=== PATIENT | male | born 1970 | race Caucasian/White ===

== ENCOUNTER 2019-09-23 16:47 | Emergency (ER) | payer MEDICAID, SELFPAY ==
[2019-09-23 16:48] VITALS: BP 172/97; PULSE 74; RESP 16; TEMP 36.4; O2SAT 99; BMI 29.3
[2019-09-23 16:52] VITALS: O2SAT 99
--- NOTE | 2019-09-23 17:22 | ED.DCSUM_ITS ---
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 Patient had a dry hacking cough since yesterday. He also states he has had fatigue and today he had episode of nausea and sweating. He denies any chest pain except when he coughs a lot and he gets a little bit of discomfort in his chest. He currently does not have any. He does have a mild sore throat secondary to coughing. The cough is been nonproductive. Patient's is an [employer] and was very concerned that he could have coronavirus and insisted he come to the emergency room. Patient was feeling dizzy a little bit earlier which is why he was instructed to call 911 instead of driving himself. Patient does not have a PCP. Patient currently denies any complaints. He states he does not think he should be in the ER and is only here to satisfy his . Patient states he has not slept much because he was driving overnight and was up all day at home. He states he is very tired. Past Medical History - Allergies and Home Meds Allergies/Adverse Reactions: Allergies morphine Adverse Reaction (Mild, Verified 01/17/16 18:52) Other STATES NOT REALLY A REACTION- STATES HE JUST DOESN'T LIKE TO TAKE MEDICATION AND HAVE MEDICATION EFFECTS I FELT IT GO IN, AND I ABOUT CAME OUT OF THE BED, I LIKE TO BE IN CONTROL OF THINGS, IT DIDN'T MAKE ME FEEL BAD, I JUST LIKE TO BED IN CONTROL. codeine Adverse Reaction (Verified 09/16/13 16:58) Abd cramps/diarrhea Primary Care Physician: Nicol Matthew MD [STAFF PHYSICIAN] - Surgical History: noncontributory Smoking Status: Current every day smoker - Family History Paternal Family History: Reports: Heart Disease Review of Systems General: Reports: Chills, Malaise, Sweats. Denies: Fever Eyes: Denies: Visual changes - bilaterally, Diplopia ENT: Reports: Sore throat. Denies: Bilateral ear pain, Rhinorrhea Cardiovascular: Denies: Chest pain, Palpitations Respiratory: Reports: Cough. Denies: Dyspnea, Sputum, Dyspnea on exertion Gastrointestinal: Reports: Nausea. Denies: Abdominal pain, Vomiting, Diarrhea, Melena, Hematochezia Genitourinary: Denies: Dysuria, Hematuria, Frequency Skin: Denies: Rash Neurological: Denies: Headache, Weakness, Numbness Physical Exam Vital Signs/Narrative: Vital Signs Temp Pulse Resp BP Pulse Ox 09/23/19 16:48 97.6 F L 74 16 172/97 H 99 Inital Vital Signs reviewed: Yes General: Well nourished, Well developed Head: Normocephalic, Atraumatic Eyes: Perrl, EOMI Neck: Supple, Nontender Cardiovascular: Regular rate, Regular rhythm, No murmurs Respiratory: No distress, CTA bilaterally, No Stridor, Chest nontender Abdomen: Soft, Nontender, Nondistended, Normal bowel sounds Back: Nontender, Normal Inspection Extremities: Nontender, No edema Skin: Normal color, No rash Neurological: Alert, Oriented x3, Cranial nerves II-XII grossly intact, Normal Strength, Normal Sensation Psychological: Normal affect Diagnostic/Tx/Re-eval Chest X-Ray - ED: 1 View, Read by ED Physician, Read by Radiologist, No Acute Disease - Medical Decision Making Patient evaluated for cough and fatigue. He is nontoxic in no acute distress. Is not hypoxic. Does not have associated chest pain. I do not suspect ACS or PE as a cause of his symptoms. His lung sounds are clear. He is not wheezing. Chest x-ray does not show any acute infiltrate. Is possible patient does have novel coronavirus 19. Patient is counseled that I cannot test for this at this time. He is counseled on isolation. Patient is very well-appearing with normal vital signs I do not think blood work is indicated at this time. He does not have a PCP so he is given a referral for follow-up. He is given Tylenol in the emergency room for his symptoms. Patient is counseled on signs symptoms require return the emergency room. He verbalizes agreement understand this plan. Discharged home in stable condition. ED Disposition - Plan for ED Patient: Disposition: Home or Assisted Living Diagnosis: Cough, Suspected [place] coronavirus infection Referrals: Nicol Matthew MD [STAFF PHYSICIAN] - Additional Instructions: You likely have an upper respiratory viral infection. At this time you do not have pneumonia. At this time I cannot test you for coronavirus as you do not meet criteria. It is possible you have it. Please quarantine yourself at home for 14 days or until your symptoms have resolved completely for 3 days. Take Tylenol as needed for fever and myalgias. Return to the emergency room should you have any worsening respiratory symptoms including significant shortness of breath or signs of dehydration.
--- NOTE | 2019-09-23 17:25 | RAD_ITS ---
STUDY: X-RAY CHEST REASON FOR EXAM: Male, 49 years old. Cough since yesterday. SOB. TECHNIQUE: Single AP portable view of the chest. COMPARISON: 01/17/2016. FINDINGS: The lungs are clear and expanded. There is no demonstrated pleural abnormality. Normal size heart. Normal mediastinum and jeni. Normal visualized pulmonary arteries. Normal visualized aortic arch and descending thoracic aorta. Normal visualized thoracic spine. Normal visualized ribs, clavicles, and shoulders. There is no demonstrated abnormality of the visualized soft tissue structures of the upper abdomen. RAD/Chest 1 View (Portable) IMPRESSION: Normal x-ray examination of the chest. Electronically Signed: Jaylon Ruano MD at 17:58 EDT , Service support ,
[2019-09-23] MEDS: Acetaminophen 500 MG Tablet 1000 MG PO (17:46)
[2019-09-23 18:39] VITALS: BP 169/102; PULSE 76; RESP 16; O2SAT 98
== END 2019-09-23 18:40 | disposition home or self-care (01) ==
PROVIDERS: Emergency Provider Emergency Medicine
DX: R05 Cough (principal); F17.200 Nicotine dependence, unspecified, uncomplicated
CPT/HCPCS: 71045; 99284

== ENCOUNTER → 2020-10-01 09:42 | Outpatient (CLI) | payer MEDICAID, SELFPAY ==
--- NOTE | 2020-10-02 12:55 | STRESSREP_ITS ---
Stress Test Report Regular stress test date: [10/01/2020] Procedure: Exercise tolerance test Indications: Chest pain Consent: Per the patient Procedure: The patient exercised on a Edilberto protocol for 2 minutes and 1 second achieving a peak heart rate of 125 bpm (72% predicted maximal heart rate) with a peak blood pressure 190/78 mmHg and a peak MET capacity of approximately 4.6 MET's. The baseline ECG demonstrated sinus rhythm. The peak exercise ECG demonstrated no significant ischemic changes. [There were no cardiac dysrhythmias pretest, during exercise, or recovery]. The functional capacity was considered decreased for age. The patient had no complaint of chest discomfort during exercise or recovery. The examination was discontinued secondary to hip pain. Impression: 1. Stress test is suboptimal for evaluation of ischemia as patient reached only 72% of maximal age-predicted heart rate due to hip pain. Consider pharmac ological stress test to evaluate for ischemia if clinically indicated. 2. Stress test is negative for exercise-induced chest pain. 3. Stress test test is negative for exercise-induced EKG changes of ischemia. 4. Functional capacity is [decreased for age] This note was generated with [employer] software. It may contain incorrect words, spelling, and punctuation that were not noted in checking the note before signing.
== END ==
PROVIDERS: PCP Internal Medicine; Referring Provider Nurse Practitioner; Visit Provider Nurse Practitioner
DX: R07.9 Chest pain, unspecified (principal)
CPT/HCPCS: 93017

== ENCOUNTER → 2020-11-08 06:00 | Outpatient (CLI) | payer OTHER, MEDICAID, SELFPAY ==
--- NOTE | 2020-11-08 17:04 | STRESSREP ---
Stress Test Report Pharmacologic myocardial perfusion stress test. 50-year-old man with a history of chest pain. Stress protocol: Resting EKG demonstrates normal sinus rhythm with a rate of 72 bpm normal intervals are noted resting blood pressure is 138/92 mmHg. 0.4 mg of regadenoson was infused per usual protocol followed by rapid intravenous saline flush injection continuous EKG monitoring was performed. The maximum heart rate attained was 91 bpm which was 52% of maximum predicted heart rate the maximum workload was 1 metabolic equivalent. At rest there were no ST or T wave changes noted to suggest ischemia at peak infusion nonspecific ST changes were noted with did not meet the criteria for ischemia. No clinical angina was noted. The test was terminated due to completion of protocol. The resting blood pressure was 138/82 mmHg. Myocardial perfusion protocol. 11.8 mCi of technetium 99m sestamibi was injected at rest. 0.4 mg of regadenoson was infused per usual protocol. At peak infusion 33.7 mCi of technetium 99m sestamibi was injected stress images were obtained stress and rest images were reconstructed and compared in the short axis vertical long and horizontal long axis. Gated images were also obtained Perfusion SPECT analysis: Review of the stress images demonstrate normal uptake of tracer noted in all areas of myocardium the resting images similarly demonstrate normal uptake of tracer noted in all areas of myocardium. No areas of reversibility are noted suggest ischemia no previous infarct is noted. Gated SPECT analysis: The gated ejection fraction is 74%. Conclusion: Normal pharmacologic myocardial perfusion stress test. Preserved ejection fraction.
== END ==
PROVIDERS: PCP Internal Medicine; Referring Provider Nurse Practitioner; Visit Provider Nurse Practitioner
DX: R07.9 Chest pain, unspecified (principal)
CPT/HCPCS: 78452; 93017; A9500; A4216; J2785

== ENCOUNTER → 2024-04-28 | Outpatient (CLI) | payer OTHER, SELFPAY ==
--- NOTE | 2024-04-28 11:45 | COLBX_PTH ---
PATIENT: LIVE SMITH LOC: [facility] U#:[id number] AGE/SX: 53/M ROOM: RE04/28/[address]: Dr. Steven Fine MD : 1970 BED: DIS: 04/28/2024 SPEC #: [id number] RECD: 04/28/24 15:13 STATUS: MAGDALENA REWiley #: [id number] CHANG: 04/28/24 11:[address]: Steven Fine DEPT: SURGICAL PATHOLOGY RECD BY: Francheska Kay ENTERED: 04/29/24 07:29 SP TYPE: COLON BX OT DR: MD Dr. Mulugeta Callaway MD Tissues: A - Ascending colon B - Transverse colon Procedures: Surgery Specimen Level IV HEADER OPERATION: Colonoscopy PRE-OP DIAGNOSIS: Screening TISSUE SUBMITTED: A- Ascending colon polyp, B- Transverse colon polyp MICROSCOPIC DIAGNOSIS A. Ascending colon polyp, biopsy: Tubular adenoma. B. Transverse colon polyp, biopsy: Fragments of tubular adenoma. JUVE. 05/02/2024 MICROSCOPIC DESCRIPTION Slides are reviewed. GROSS DESCRIPTION A. Received in fixative is one container labeled with the patient's name and designated Ascending colon polyp. The specimen consists of one irregular fragment of light gaviria soft tissue that measures 0.2 x 0.2 x 0.1 cm. The specimen is totally submitted in one cassette. B. Received in fixative is one container labeled with the patient's name and designated Transverse colon polyp. The specimen consists of multiple irregular fragments of light gaviria soft tissue that in aggregate measures 2.0 x 0.3 x 0.1 cm. The specimen is totally submitted in one cassette. 04/29/2024 TC:1 CPT:43278m3
== END | disposition home or self-care (01) ==
PROVIDERS: PCP Internal Medicine; Referring Provider Surgery; Visit Provider Surgery
DX: Z12.11 Encounter for screening for malignant neoplasm of colon (principal); D12.2 Benign neoplasm of ascending colon; D12.3 Benign neoplasm of transverse colon
CPT/HCPCS: 88305